=== PATIENT | male | born 1955 | race Hispanic/Latino ===

== ENCOUNTER 2017-12-04 18:52 | Observation (INO) | payer OTHER ==
[2017-12-04] MEDS ORDERED: NA CHLORIDE 0.9% 1,000 ML ONE (19:20)
[2017-12-04 19:26] LABS: Blood Gas Oxyhemoglobin 94.1 % (94-97); Blood O2 Saturation 96.1 % (92-98.5)
[2017-12-04 19:31] LABS: Absolute Monocytes 0.6 K/uL (0.1-1.3); Basophils % 0.7 % (0-1.3); Eosinophils % 0.8 % (0-4.4); Hematocrit 43.1 % (39.6-49.0); Lymphocytes % 13.4 % (15.3-44.8); MCH 32.4 pg (27.0-35.0); MCV 95.4 fL (80-100); MPV 9.7 fL (7.6-11.3); Monocytes % 7.2 % (3.3-12.3); RBC Red Blood Cell Count 4.51 M/uL (4.33-5.43)
[2017-12-04] MEDS ORDERED: METOPROLOL TARTRATE 5 MG/5 ML INJ IV ONE (19:34)
[2017-12-04 19:45] LABS: Protime INR 1.08
--- NOTE | 2017-12-04 19:49 | RAD REPORT ---
EXAM DESCRIPTION: RAD - Chest Single View - 12/04/2017 7:40 pm CLINICAL HISTORY: DYSPNEA Chest pain. COMPARISON: No comparisons FINDINGS: Portable technique limits examination quality. The lungs are grossly clear. The heart is mildly to moderately enlarged in size. No displaced fractur es. IMPRESSION: No acute intrathoracic process suspected.
[2017-12-04 19:55] LABS: Albumin 3.5 g/dL (3.4-5.0); Bilirubin Direct 0.3 mg/dL (0-0.2); Bilirubin Total 1.1 mg/dL (0.2-1.0); Magnesium 2.5 mg/dL (1.8-2.4); Potassium 3.7 mmol/L (3.5-5.1); Protein, Total 7.2 g/dL (6.4-8.2)
[2017-12-04 21:15] LABS: Barbiturates NEGATIVE (NEGATIVE); Benzodiazepines NEGATIVE (NEGATIVE); Cocaine NEGATIVE (NEGATIVE); METHAMPHETAM NEGATIVE (NEGATIVE); Methadone NEGATIVE (NEGATIVE); Opiates NEGATIVE (NEGATIVE); Phencyclidine NEGATIVE (NEGATIVE); THC Cannibis NEGATIVE (NEGATIVE)
--- NOTE | 2017-12-04 21:17 | RAD REPORT ---
EXAM DESCRIPTION: CT - Head Brain Wo Cont - 12/04/2017 9:01 pm CLINICAL HISTORY: SYNCOPE COMPARISON: No comparisons TECHNIQUE: All CT scans are performed using dose optimization technique as appropriate and may inclu de automated exposure control or mA/KV adjustment according to patient size. FINDINGS: No intracranial hemorrhage, hydrocephalus or extra-axial fluid collection.Moderate general ized brain atrophy is present with moderate periventricular and deep white matter chronic microvascul ar ischemic changes.No areas of brain edema or evidence of midline shift. The paranasal sinuses and mastoids are clear. The calvarium is intact. IMPRESSION: No acute intracranial abnormality.
--- NOTE | 2017-12-04 22:02 | RAD REPORT ---
EXAM DESCRIPTION: VAS - Extrem Venous W Compress Alfa - 12/04/2017 9:57 pm CLINICAL HISTORY: dyspnea Bilateral leg edema and swelling. COMPARISON: <Comparisons> TECHNIQUE: Real-time sonographic interrogation of the left and right lower extremity deep venous sys tems was performed. FINDINGS: Normal compressibility, flow augmentation, phasic flow and spontaneous flow is identified in both the left and right lower extremity deep venous systems. IMPRESSION: No sonographic evidence of left or right lower extremity deep venous thrombosis.
[2017-12-04 22:11] LABS: Urine Blood NEGATIVE (NEG); Urine Glucose NEGATIVE (NEG); Urine Protein 2+ (NEG); Urine Specific Gravity 1.025 (1.005-1.030)
--- NOTE | 2017-12-05 00:40 | ER ---
Nurse's Notes [facility] Name: Ephraim Telles Jr Age: 62 yrs Sex: Male : 1955 Arrival Date: 12/04/2017 Time: 18:53 Bed 3 Private MD: Diagnosis: Acute dyspnea. Syncope. Atrial fib. with RVR. Possible Pulmonary embolism Presentation: 12/04 18:53 Presenting complaint: EMS states: Pt had sudden onset of SOB and a syncopal episode, pt ph diaphoretic upon EMS arrival, breath sounds diminished in LL lobe, hx of A-fib, rate in 30s, Spo2 in 80's on RA, improved to 96% on 4L NC, pt denies pain. Transition of care: patient was not received from another setting of care. Onset of symptoms was December 04, 2017. Risk Assessment: Do you want to hurt yourself or someone else? Patient reports no desire to harm self or others. Initial Sepsis Screen: Does the patient meet any 2 criteria? No. Patient's initial sepsis screen is negative. Does the patient have a suspected source of infection? No. Patient's initial sepsis screen is negative. Care prior to arrival: IV initiated. in the right hand. 18:53 Method Of Arrival: EMS: [facility] 18:53 Acuity: LONNIE 2 ph Triage Assessment: 19:58 General: Appears in no apparent distress. comfortable. Respiratory: Reports shortness ao of breath Onset: The symptoms/episode began/occurred today, the patient has moderate shortness of breath. Historical: - Allergies: 19:08 No Known Allergies; ph - Home Meds: 19:08 warfarin 2.5 mg Oral tab 2 tabs once daily [Active]; aspirin 81 mg Oral TbEC 1 tab once ph daily [Active]; atorvastatin 40 mg oral tab 1 tab once daily [Active]; digoxin 125 mcg Oral tab 1 tab once daily [Active]; lisinopril 10 mg Oral tab 1 tab once daily [Active]; metoprolol tartrate 100 mg Oral tab 1 tab 2 times per day [Active]; metoprolol tartrate 25 mg Oral tab 1 tab 2 times per day [Active]; 19:19 ranitidine HCl 150 mg Oral cap 1 cap once daily [Active]; terazosin 10 mg oral cap 1 ph cap once daily [Active]; - PMHx: 19:08 Hypertension; Hyperlipidemia; Atrial Fib; ph - Immunization history:: Adult Immunizations up to date. - Social history:: Smoking status: Patient/guardian denies using tobacco. - Ebola Screening: : No symptoms or risks identified at this time. Screenin:57 Abuse screen: Denies threats or abuse. Denies injuries from another. Nutritional ao screening: No deficits noted. Tuberculosis screening: No symptoms or risk factors identified. Fall Risk None identified. Assessment: 19:11 General: Appears in no apparent distress. comfortable, Behavior is calm, cooperative, ao appropriate for age. Pain: Denies pain. Neuro: Level of Consciousness is awake, alert, obeys commands, Oriented to person, place, time, situation, Appropriate for age Moves all extremities. Speech is normal, Facial symmetry appears normal. Cardiovascular: Reports shortness of breath, Denies chest pain, Heart tones S1 S2 Rhythm is atrial fibrillation. Respiratory: Airway is patent Respiratory effort is even, unlabored, Respiratory pattern is regular, Breath sounds are clear bilaterally. GI: Abdomen is round obese. : No signs and/or symptoms were reported regarding the genitourinary system. EENT: No signs and/or symptoms were reported regarding the EENT system. Derm: Skin is pink, warm \T\ dry. normal, Skin temperature is warm. Musculoskeletal: Range of motion: intact in all extremities. 20:20 Reassessment: Patient appears in no apparent distress at this time. Patient and/or ao family updated on plan of care and expected duration. Pain level reassessed. Patient is alert, oriented x 3, equal unlabored respirations, skin warm/dry/pink. Patient HR is on the 90st and still on Afib. 21:34 Reassessment: Patient appears in no apparent distress at this time. Patient and/or ao family updated on plan of care and expected duration. Pain level reassessed. Patient is alert, oriented x 3, equal unlabored respirations, skin warm/dry/pink. Patient back from CT. 22:40 Reassessment: Patient appears in no apparent distress at this time. Patient and/or ao family updated on plan of care and expected duration. Pain level reassessed. Patient is alert, oriented x 3, equal unlabored respirations, skin warm/dry/pink. Waiting on CT report. 23:52 Reassessment: Patient appears in no apparent distress at this time. Patient and/or ao family updated on plan of care and expected duration. Pain level reassessed. Patient is alert, oriented x 3, equal unlabored respirations, skin warm/dry/pink. Waiting on dispo orders. Patient HR in the 90st to 100st. Patient denies pain at this time. 12/05 00:25 Reassessment: Patient appears in no apparent distress at this time. Patient and/or ao family updated on plan of care and expected duration. Pain level reassessed. Patient is alert, oriented x 3, equal unlabored respirations, skin warm/dry/pink. Calling to get patient transferred to [facility]. 01:38 Reassessment: Patient appears in no apparent distress at this time. Patient and/or ao family updated on plan of care and expected duration. Pain level reassessed. Patient is alert, oriented x 3, equal unlabored respirations, skin warm/dry/pink. No beds available at [facility]. Patient to be admitted to the hospital. 04:00 Reassessment: Waiting for BP to come down before patient can be move. Report called to ao [facility] by RADHA Reddy. 04:58 Reassessment: Patient and/or family updated on plan of care and expected duration. Pain fc level reassessed. spoke with Dr Pratt about pts bp of 161/121. Rec'd orders for Hydralazine and Lovenox for now. Charted in [employer]. Vital Signs: 12/04 18:57 BP 150 / 111; Pulse 148; Resp 20; Temp 97.8; Pulse Ox 95% on R/A; Weight 127.01 kg; ph Height 5 ft. 10 in. (177.80 cm); Pain 0/10; 19:32 BP 161 / 121; Pulse 137; Resp 20; Pulse Ox 96% on R/A; mw2 19:57 BP 147 / 120; Pulse 101; Resp 17; Pulse Ox 97% on R/A; Pain 0/10; ao 20:20 BP 142 / 126; Pulse 93; Resp 20; Pulse Ox 92% on R/A; Pain 0/10; ao 21:34 BP 168 / 120; Pulse 112; Resp 25; Pulse Ox 97% on R/A; ao 22:15 BP 147 / 106; Pulse 117; Resp 24; Pulse Ox 94% on R/A; mw2 23:21 BP 167 / 112; Pulse 106; Resp 18; Pulse Ox 96% on R/A; tl2 12/05 00:30 BP 176 / 116; Pulse 103; Resp 20; Pulse Ox 96% on R/A; ao 01:40 BP 162 / 127; Pulse 108; Resp 16; Pulse Ox 95% on R/A; ao 03:00 BP 183 / 127; Pulse 102; Resp 20; Pulse Ox 95% ; tl2 04:02 BP 174 / 130; Pulse 138; Resp 20; Pulse Ox 94% on R/A; ao 04:18 BP 163 / 128; Pulse 104; Resp 22; Pulse Ox 92% on R/A; ao 04:59 BP 161 / 97; Pulse 105; Resp 18; Pulse Ox 95% on R/A; tl2 05:03 BP 161 / 97; Pulse 94; Resp 16; Pulse Ox 94% on R/A; Pain 0/10; ao 12/04 18:57 Body Mass Index 40.18 (127.01 kg, 177.80 cm) ph ED Course: 12/04 18:53 Patient arrived in ED. ph 18:57 Triage completed. ph 19:05 Sarthak Jackson MD is Attending Physician. pkl 19:11 Luis Bautsita, RADHA is Primary Nurse. ao 19:17 Inserted saline lock: 20 gauge in right antecubital area, using aseptic technique. ag Blood collected. 19:20 Arm band placed on. ph 19:36 X-ray completed. Portable x-ray completed in exam room. jr1 19:40 XRAY Chest (1 view) In Process Unspecified. EDMS 19:58 Patient has correct armband on for positive identification. ao 20:40 Radiology exam delayed due to pt using the bathroom. aa4 20:51 Radiology exam delayed due to pt with CT, bringing to US after. aa4 21:00 CT Head Brain wo Cont In Process Unspecified. EDMS 21:08 Patient taken to ultrasound. via stretcher. vr 21:15 Ultrasound completed. Patient tolerated well. Notified ED Physician priti. aa4 21:57 US Extremity Venous W Compression Alfa In Process Unspecified. EDMS 12/05 00:38 Oscar Pratt MD is Hospitalizing Provider. pkl 05:00 No provider procedures requiring assistance completed. Patient admitted, IV remains in fc place. Administered Medications: 12/04 19:35 Drug: Lopressor 5 mg Route: IVP; Site: right antecubital; ao 19:37 Drug: Lopressor 5 mg Route: IVP; Site: right antecubital; ao 19:39 Drug: NS 0.9% 1000 ml Route: IV; Rate: 100 ml/hr; Site: right antecubital; ao 12/05 05:38 Follow up: IV Status: Infusion continued upon admission ao 12/04 19:39 Drug: Lopressor 5 mg Route: IVP; Site: right antecubital; ao 12/05 05:38 Follow up: Response: No adverse reaction ao 04:00 Drug: Labetalol 20 mg Route: IVP; Infused Over: 2 mins; Site: right wrist; ao 05:38 Follow up: Response: No adverse reaction ao Outcome: 00:39 Decision to Hospitalize by Provider. pkl 05:00 Admitted to Tele accompanied by tech, via stretcher, room 410, with chart, Report fc called to [facility] 05:00 Condition: good 05:00 Discharge instructions given to patient, Guards Instructed on the need for admit, Demonstrated understanding of instructions. 05:23 Patient left the ED. ao Signatures: Dispatcher [employer] EDMS Sarthak Jackson MD MD pkl Ringgold, Jennifer jr1 Maureen Ricci RN RN Kiera Beard Victoria vr Gallardo, Ana ag Hall, Patricia, RN RN ph Ortiz, Alex, RN RN ao Knox, Taylor, RN RN 2 Columba Reeves 2 Corrections: (The following items were deleted from the chart) 12/04 19:01 18:57 Pulse 148bpm; Resp 20bpm; Pulse Ox 95% RA; Temp 97.8F; 127.01 kg; Height 5 ft. 10 ph in.; BMI: 40.1; Pain 0/10; ph 19:59 19:58 General: Appears distressed, uncomfortable, ao ao
--- NOTE | 2017-12-05 00:40 | EDPHYS ---
Physician Documentation [facility] Name: Ephraim Telles Jr Age: 62 yrs Sex: Male : 1955 Arrival Date: 12/04/2017 Time: 18:53 Bed 3 Private MD: ED Physician Sarthak Jackson HPI: 12/04 19:13 This 62 yrs old Male presents to ER via EMS with complaints of Shortness Of Breath, pkl Syncope. 19:13 The patient has shortness of breath at rest. Onset: The symptoms/episode began/occurred pkl just prior to arrival. Associated signs and symptoms: Pertinent positives: diaphoresis, syncope. Historical: - Allergies: 19:08 No Known Allergies; ph - Home Meds: 19:08 warfarin 2.5 mg Oral tab 2 tabs once daily [Active]; aspirin 81 mg Oral TbEC 1 tab once ph daily [Active]; atorvastatin 40 mg oral tab 1 tab once daily [Active]; digoxin 125 mcg Oral tab 1 tab once daily [Active]; lisinopril 10 mg Oral tab 1 tab once daily [Active]; metoprolol tartrate 100 mg Oral tab 1 tab 2 times per day [Active]; metoprolol tartrate 25 mg Oral tab 1 tab 2 times per day [Active]; 19:19 ranitidine HCl 150 mg Oral cap 1 cap once daily [Active]; terazosin 10 mg oral cap 1 ph cap once daily [Active]; - PMHx: 19:08 Hypertension; Hyperlipidemia; Atrial Fib; ph - Immunization history:: Adult Immunizations up to date. - Social history:: Smoking status: Patient/guardian denies using tobacco. - Ebola Screening: : No symptoms or risks identified at this time. ROS: 19:13 Eyes: Negative for injury, pain, redness, and discharge, ENT: Negative for injury, pkl pain, and discharge, Neck: Negative for injury, pain, and swelling, Cardiovascular: Negative for chest pain, palpitations, and edema. 19:13 Respiratory: Positive for shortness of breath. 19:13 Abdomen/GI: Negative for abdominal pain, nausea, vomiting, and diarrhea. 19:13 Back: Negative for acute changes. 19:13 : Negative for urinary symptoms. 19:13 MS/extremity: Negative for acute changes. 19:13 Skin: Positive for diaphoresis. 19:13 Neuro: Positive for syncope. Exam: 19:29 Head/Face: Normocephalic, atraumatic. Eyes: Pupils equal round and reactive to light, pkl extra-ocular motions intact. Lids and lashes normal. Conjunctiva and sclera are non-icteric and not injected. Cornea within normal limits. Periorbital areas with no swelling, redness, or edema. ENT: Nares patent. No nasal discharge, no septal abnormalities noted. Tympanic membranes are normal and external auditory canals are clear. Oropharynx with no redness, swelling, or masses, exudates, or evidence of obstruction, uvula midline. Mucous membranes moist. Neck: Trachea midline, no thyromegaly or masses palpated, and no cervical lymphadenopathy. Supple, full range of motion without nuchal rigidity, or vertebral point tenderness. No Meningismus. Chest/axilla: Normal chest wall appearance and motion. Nontender with no deformity. No lesions are appreciated. 19:29 Chest/axilla: Exam negative for acute changes. 19:29 Cardiovascular: Rate: tachycardic, actual rate is 148 bpm, Rhythm: irregularly irregular. 19:29 ECG was reviewed by the Attending Physician. 19:29 Respiratory: the patient does not display signs of respiratory distress, Respirations: normal, Breath sounds: are clear throughout. 19:29 Abdomen/GI: Bowel sounds: normal, Palpation: abdomen is soft and non-tender, in all quadrants. 19:29 Back: Exam negative for acute changes. 19:29 : Exam negative for acute changes. 19:29 Musculoskeletal/extremity: Exam is negative for acute changes. 19:29 Skin: Exam negative for flushing. 19:29 Neuro: Orientation: is normal, Mentation: is normal, Cranial nerves: grossly normal, Motor: is normal. Vital Signs: 18:57 BP 150 / 111; Pulse 148; Resp 20; Temp 97.8; Pulse Ox 95% on R/A; Weight 127.01 kg; ph Height 5 ft. 10 in. (177.80 cm); Pain 0/10; 19:32 BP 161 / 121; Pulse 137; Resp 20; Pulse Ox 96% on R/A; mw2 19:57 BP 147 / 120; Pulse 101; Resp 17; Pulse Ox 97% on R/A; Pain 0/10; ao 20:20 BP 142 / 126; Pulse 93; Resp 20; Pulse Ox 92% on R/A; Pain 0/10; ao 21:34 BP 168 / 120; Pulse 112; Resp 25; Pulse Ox 97% on R/A; ao 22:15 BP 147 / 106; Pulse 117; Resp 24; Pulse Ox 94% on R/A; mw2 23:21 BP 167 / 112; Pulse 106; Resp 18; Pulse Ox 96% on R/A; tl2 12/05 00:30 BP 176 / 116; Pulse 103; Resp 20; Pulse Ox 96% on R/A; ao 01:40 BP 162 / 127; Pulse 108; Resp 16; Pulse Ox 95% on R/A; ao 03:00 BP 183 / 127; Pulse 102; Resp 20; Pulse Ox 95% ; tl2 04:02 BP 174 / 130; Pulse 138; Resp 20; Pulse Ox 94% on R/A; ao 04:18 BP 163 / 128; Pulse 104; Resp 22; Pulse Ox 92% on R/A; ao 04:59 BP 161 / 97; Pulse 105; Resp 18; Pulse Ox 95% on R/A; tl2 05:03 BP 161 / 97; Pulse 94; Resp 16; Pulse Ox 94% on R/A; Pain 0/10; ao 12/04 18:57 Body Mass Index 40.18 (127.01 kg, 177.80 cm) ph MDM: 12/04 19:06 Patient medically screened. pkl 12/05 00:36 Data reviewed: vital signs, nurses notes, lab test result(s), EKG, radiologic studies, pkl CT scan, plain films. 12/04 19:12 Order name: Basic Metabolic Panel; Complete Time: 20:03 pkl 12/04 19:12 Order name: CBC with Diff; Complete Time: 19:48 pkl 12/04 19:12 Order name: Ckmb; Complete Time: 20:03 pkl 12/04 19:12 Order name: CPK; Complete Time: 20:03 pkl 12/04 19:12 Order name: LFT's; Complete Time: 20:03 pkl 12/04 19:12 Order name: Magnesium; Complete Time: 20:03 pkl 12/04 19:12 Order name: NT PRO-BNP; Complete Time: 20:03 pkl 12/04 19:12 Order name: PT-INR; Complete Time: 20:03 pkl 12/04 19:12 Order name: Ptt, Activated; Complete Time: 20:03 pkl 12/04 19:12 Order name: Troponin (emerg Dept Use Only); Complete Time: 20:03 pkl 12/04 19:12 Order name: ABG; Complete Time: 19:48 pkl 12/04 19:12 Order name: D-Dimer; Complete Time: 20:03 pkl 12/04 19:12 Order name: UDS; Complete Time: 00:40 pkl 12/04 21:01 Order name: Urine Dipstick--Ancillary (enter results); Complete Time: 00:40 ms 12/04 19:12 Order name: XRAY Chest (1 view); Complete Time: 20:03 pkl 12/04 19:12 Order name: EKG; Complete Time: 19:13 pkl 12/04 19:12 Order name: Cardiac monitoring; Complete Time: 19:15 pkl 12/04 19:12 Order name: EKG - Nurse/Tech; Complete Time: 19:30 pkl 12/04 19:12 Order name: IV Saline Lock; Complete Time: 19:15 pkl 12/04 19:12 Order name: Labs collected and sent; Complete Time: 19:18 pkl 12/04 19:12 Order name: O2 Per Protocol; Complete Time: 19:15 pkl 12/04 19:12 Order name: O2 Sat Monitoring; Complete Time: 19:15 pkl 12/04 19:12 Order name: Urine Dipstick-Ancillary (obtain specimen); Complete Time: 20:46 pkl 12/04 20:07 Order name: CT Head Brain wo Cont; Complete Time: 00:40 pkl 12/04 20:07 Order name: US Extremity Venous W Compression Alfa; Complete Time: 00:40 pkl Administered Medications: 12/04 19:35 Drug: Lopressor 5 mg Route: IVP; Site: right antecubital; ao 19:37 Drug: Lopressor 5 mg Route: IVP; Site: right antecubital; ao 19:39 Drug: NS 0.9% 1000 ml Route: IV; Rate: 100 ml/hr; Site: right antecubital; ao 12/05 05:38 Follow up: IV Status: Infusion continued upon admission ao 12/04 19:39 Drug: Lopressor 5 mg Route: IVP; Site: right antecubital; ao 12/05 05:38 Follow up: Response: No adverse reaction ao 04:00 Drug: Labetalol 20 mg Route: IVP; Infused Over: 2 mins; Site: right wrist; ao 05:38 Follow up: Response: No adverse reaction ao Disposition: 12/05/17 00:39 Hospitalization ordered by Oscar Pratt for Observation. Preliminary diagnosis is Acute dyspnea. Syncope. Atrial fib. with RVR. Possible Pulmonary embolism. - Bed requested for Telemetry/MedSurg (observation). - Status is Observation. ao - Condition is Stable. - Problem is new. - Symptoms have improved. UTI on Admission? No Signatures: Dispatcher [employer] EDMS Elisa Lazcano, RN RN Sarthak Gutierrez MD MD pkl Chretien, Felicia RN RADHA Julia Weiss RN RN Luis Bautista, RN RN ao Corrections: (The following items were deleted from the chart) 03:14 00:39 Hospitalization Ordered by Oscar Pratt MD for Observation. Preliminary kl diagnosis is Acute dyspnea. Syncope. Atrial fib. with RVR. Possible Pulmonary embolism. Bed requested for Telemetry/MedSurg (observation). Status is Observation. Condition is Stable. Problem is new. Symptoms have improved. UTI on Admission? No. pkl 05:23 03:14 12/05/2017 00:39 Hospitalization Ordered by Oscar Pratt MD for Observation. ao Preliminary diagnosis is Acute dyspnea. Syncope. Atrial fib. with RVR. Possible Pulmonary embolism. Bed requested for Telemetry/MedSurg (observation). Status is Observation. Condition is Stable. Problem is new. Symptoms have improved. UTI on Admission? No. kl
--- NOTE | 2017-12-05 01:46 | P.HP ---
Certification for Inpatient Patient admitted to: Observation With expected LOS: <2 Midnights Practitioner: I am a practitioner with admitting privileges, knowledge of patient current condition, hospital course, and medical plan of care. Services: Services provided to patient in accordance with Admission requirements found in Title 42 Section 412.3 of the Code of Federal Regulations Patient History Date of Service: 12/05/17 Reason for admission: Syncope History of Present Illness: Mr. Telles is a 62-year-old male, who is an inmate, with history of hypertension, chronic atrial fibrillation, diabetes mellitus types 2, dyslipidemia, obesity, states that when he was walking on the hold started feeling dizziness, no blackout, and then he passed out. He denied palpitation, shortness of breath, diaphoretic episode, or chest pain. 911 was called, and when the EMS arrived, found the patient with heart rate in the 30s, O2 sat 80% on room air. The patient was placed in supplemental oxygen, and his O2 sat came up to 94%. Laboratory work was remarkable for elevated D-dimer, elevated creatinine, elevated proBNP and slightly elevation of initial troponin. EKG shows atrial fibrillation at 140 is BPM. Home medications list reviewed: Yes - Past Medical/Surgical History -: Diabetes mellitus types 2 -: Obesity -: Hypertension -: Dyslipidemia Past Surgical History: Reviewed- Non-Contributory - Family History Family History: Reviewed- Non-Contributory - Social History Smoking Status: Never smoker Alcohol use: No CD- Drugs: No Caffeine use: Yes Place of Residence: Home Review of Systems 10-point ROS is otherwise unremarkable Physical Examination - Physical Exam General: Alert, In no apparent distress HEENT: Atraumatic, PERRLA, Mucous membr. moist/pink, EOMI, Sclerae nonicteric Neck: Supple, 2+ carotid pulse no bruit, No LAD, Without JVD or thyroid abnormality Respiratory: Clear to auscultation bilaterally, Normal air movement Cardiovascular: Normal S1 S2, Irregular heart rate/rhythm Gastrointestinal: Normal bowel sounds, No tenderness Musculoskeletal: No tenderness Integumentary: No rashes Neurological: Normal speech, Normal strength at 5/5 x4 extr, Normal tone, Normal affect Lymphatics: No axilla or inguinal lymphadenopathy - Studies Laboratory Data (last 24 hrs) 12/04/17 19:15: PT 12.7 H, INR 1.08, APTT 27.4 12/04/17 19:15: WBC 7.7, Hgb 14.6, Hct 43.1, Plt Count 174 12/04/17 19:15: Sodium 145, Potassium 3.7, BUN 13, Creatinine 1.60 H, Glucose 127 H, Magnesium 2.5 H, Total Bilirubin 1.1 H, AST 25, ALT 29, Alkaline Phosphatase 105 Assessment and Plan - Problems (Diagnosis) (1) Syncope Current Visit: Yes Status: Acute Qualifiers: Syncope type: unspecified Qualified Code(s): R55 - Syncope and collapse (2) Acute renal injury Current Visit: Yes Status: Acute (3) Obesity Current Visit: Yes Status: Acute Qualifiers: Obesity type: unspecified obesity type Obesity classification: unspecified obesity classification Serious obesity comorbidity presence: unspecified whether serious comorbidity present Qualified Code(s): E66.9 - Obesity, unspecified (4) Hypertension Current Visit: Yes Status: Acute Qualifiers: Hypertension type: essential hypertension Qualified Code(s): I10 - Essential (primary) hypertension (5) Dyslipidemia Current Visit: Yes Status: Acute - Plan 1. Syncope: Etiology is still unclear, CT scan of the head shows no acute intracranial abnormality. Since D-dimer is elevated, PE he is within the differential diagnosis, however his renal function is abnormal, and CTA of the chest is contraindicated at this point. Will order a V/Q scan in the morning, in the meantime will start empiric who will anticoagulation. Patient's INR is subtherapeutic, I believe the patient is taking warfarin for his atrial fibrillation. Doppler venous ultrasound is negative for DVT. 2. Hypertension: Will resume home medication once is verified. 3. Chronic atrial fibrillation: Heart rate was in the 30s when EMS arrived, in ED, his atrial fibrillation was with RVR at about 150 BPM, HR was better controlled after receive IV metoprolol. Will resume home medication once is painful. 4. Acute renal injury: Will order IV normal saline. - Advance Directives Does patient have a Living Will: No Does patient have a Durable POA for Healthcare: No - Code Status/Comfort Care Code Status Assessed: Yes Code Status: Full Code
[2017-12-05] MEDS ORDERED: LABETALOL HCL 100 MG/20 ML ONE (03:59)
[2017-12-05] MEDS ORDERED: HYDRALAZINE HCL 20 MG/ML VIAL ONE (04:49)
[2017-12-05] MEDS ORDERED: ENOXAPARIN 100 MG/ML SYR SQ ONE ×2 (04:50→04:52)
[2017-12-05] MEDS ORDERED: ONDANSETRON 4 MG/2 ML VIAL IV PRN (04:52)
[2017-12-05] MEDS ORDERED: HYDRALAZINE HCL 20 MG/ML VIAL IV ONE (04:52)
[2017-12-05] MEDS: NA CHLORIDE 0.9% 1,000 ML IV SCH ×3 (04:52→14:52)
[2017-12-05] MEDS ORDERED: ACETAMINOPHEN 500 MG TAB PO PRN (04:52)
[2017-12-05 07:13] LABS: Potassium 3.6 mmol/L (3.5-5.1)
--- NOTE | 2017-12-05 07:17 | EKG ---
Test Date: 2017-12-04 Test Time: 19:24:26 Market Research Assistant: KEVAN MEASUREMENT RESULTS: Intervals: Rate: 123 AK: QRSD: 88 QT: 326 QTc: 466 [place]: P: AK: QRS: 21 T: 77 INTERPRETIVE STATEMENTS: Atrial fibrillation with rapid ventricular response Low voltage QRS Cannot rule out Anterior infarct, age undetermined Abnormal ECG No previous ECG available for comparison Electronically Signed On 12-05-17 07:17:18 CDT by Mathew Blood
[2017-12-05] MEDS: INSULIN -REGULAR HUMAN 50 UNIT/0.5 ML ML SQ SCH ×4 (07:30→20:21)
--- NOTE | 2017-12-05 10:41 | ECHO ---
HEIGHT: 5 ft 10 in WEIGHT: 278 lb 0 oz DATE OF STUDY: 12/05/[address]: Oscar Barillas MD 2-DIMENSIONAL: YES M.MODE: YES DOPPLER: YES COLOR FLOW: YES TDS: NO PORTABLE: NO DEFINITY: NO BUBBLE STUDY: NO DIAGNOSIS: SYNCOPE CARDIAC HISTORY: CATHERIZATION: NO SURGERY: NO PROSTHETIC VALVE: NO PACEMAKER: NO MEASUREMENTS (cm) DIASTOLIC (NORMALS) SYSTOLIC (NORMALS) IVSd 1.3 (0.6-1.2) LA Diam (1.9-4.0) LVEF 50-55% LVIDd 4.5 (3.5-5.7) LVIDs 3.6 (2.0-3.5) %FS 21% LVPWd 1.3 (0.6-1.2) Ao Diam 3.4 (2.0-3.7) 2 DIMENSIONAL ASSESSMENT: RIGHT ATRIUM: NORMAL LEFT ATRIUM: DILATED RIGHT VENTRICLE: NORMAL LEFT VENTRICLE: LEFT VENTRICULAR HYPERTROPHY TRICUSPID VALVE: NORMAL MITRAL VALVE: NORMAL PULMONIC VALVE: NORMAL AORTIC VALVE: NORMAL PERICARDIAL EFFUSION: NONE AORTIC ROOT: NORMAL LEFT VENTRICULAR WALL MOTION: NORMAL DOPPLER/COLOR FLOW: MILD MITRAL REGURGITATION. COMMENTS: NORMAL LEFT VENTRICULAR EJECTION FRACTION. DILATED LEFT ATRIUM. LEFT VENTRICULAR HYPERTROPHY. MILD MITRAL REGURGITATION. ATRIAL FIBRILLATION. HEART RATE OF 120-140 BEATS PER MINUTE. TECHNOLOGIST: Hallie HICKS
[2017-12-05] MEDS: LISINOPRIL 10 MG TAB PO SCH (12:07)
[2017-12-05] MEDS: METOPROLOL TAR 50 MG TAB PO SCH (12:08)
[2017-12-05] MEDS ORDERED: WARFARIN SODIUM 2.5 MG TAB PO SCH (17:00)
[2017-12-05] MEDS: ENOXAPARIN 30 MG/0.3 ML SQ SCH (20:11)
[2017-12-05] MEDS: ENOXAPARIN 100 MG/ML SYR SQ SCH (20:12)
[2017-12-05] MEDS ORDERED: ATORVASTATIN 20 MG TAB PO SCH (21:00)
[2017-12-06] MEDS: NA CHLORIDE 0.9% 1,000 ML IV SCH (00:59)
[2017-12-06 06:15] LABS: Absolute Lymphocytes (CBC) 1.7 K/uL (0.7-4.9); Absolute Monocytes 0.5 K/uL (0.1-1.3); Absolute Neutrophil 3.2 K/uL (1.8-8.0); Basophils % 0.9 % (0-1.3); Eosinophils % 3.5 % (0-4.4); Lymphocytes % 29.7 % (15.3-44.8); MCH 32.7 pg (27.0-35.0); MCV 95.4 fL (80-100); Monocytes % 8.1 % (3.3-12.3); RBC Red Blood Cell Count 4.09 M/uL (4.33-5.43)
[2017-12-06 06:32] LABS: Potassium 3.5 mmol/L (3.5-5.1)
[2017-12-06] MEDS: INSULIN -REGULAR HUMAN 50 UNIT/0.5 ML ML SQ SCH ×2 (07:30→11:30)
[2017-12-06] MEDS: LISINOPRIL 10 MG TAB PO SCH ×2 (09:00→10:26)
[2017-12-06] MEDS: ENOXAPARIN 100 MG/ML SYR SQ SCH (09:00)
[2017-12-06] MEDS ORDERED: ENOXAPARIN 100 MG/ML SYR SQ SCH (09:00)
[2017-12-06] MEDS ORDERED: DIGOXIN 0.125 MG TABLET PO SCH (09:00)
[2017-12-06] MEDS ORDERED: ASPIRIN EC 81 MG TAB PO SCH (09:00)
[2017-12-06] MEDS ORDERED: TERAZOSIN HCL 5 MG CAP PO SCH (09:00)
[2017-12-06] MEDS: METOPROLOL TAR 50 MG TAB PO SCH (10:27)
[2017-12-06] MEDS: ENOXAPARIN 30 MG/0.3 ML SQ SCH (10:28)
--- NOTE | 2017-12-06 12:26 | P.SSS ---
Patient History Date of Service: 12/06/17 Reason for admission: Syncope History of Present Illness: Mr. Telles is a 62-year-old male, who is an inmate, with history of hypertension, chronic atrial fibrillation, diabetes mellitus types 2, dyslipidemia, obesity, states that when he was walking on the hold started feeling dizziness, no blackout, and then he passed out. He denied palpitation, shortness of breath, diaphoretic episode, or chest pain. 911 was called, and when the EMS arrived, found the patient with heart rate in the 30s, O2 sat 80% on room air. The patient was placed in supplemental oxygen, and his O2 sat came up to 94%. Laboratory work was remarkable for elevated D-dimer, elevated creatinine, elevated proBNP and slightly elevation of initial troponin. EKG shows atrial fibrillation at 140 is BPM. Allergies No Known Allergies Allergy (Verified 12/05/17 05:31) Home Medications: Aspirin [Aspirin EC 81 MG] 1 tab PO DAILY 12/05/17 Atorvastatin Calcium [Lipitor*] 40 mg PO DAILY 12/05/17 Digoxin [Lanoxin*] 125 mcg PO DAILY 12/05/17 Lisinopril [Prinivil*] 10 mg PO DAILY 12/05/17 Metoprolol Tartrate 100 mg PO DAILY 12/05/17 Ranitidine HCl [Zantac] 150 mg PO DAILY 12/05/17 Terazosin HCl [Hytrin] 10 mg PO DAILY 12/05/17 Warfarin Sodium [Coumadin*] 2.5 mg PO DAILY 12/05/17 - Past Medical/Surgical History Has patient received pneumonia vaccine in the past: Yes Diabetic: No -: Diabetes mellitus types 2 -: Obesity -: Hypertension -: Dyslipidemia - Family History Family History: Reviewed- Non-Contributory - Social History Smoking Status: Never smoker Alcohol use: No CD- Drugs: No Caffeine use: Yes Place of Residence: Home Review of Systems General: As per HPI Physical Examination - Vital Signs Temperature: 96.9 F Blood Pressure: 139/90 Pulse: 120 Respirations: 20 Pulse Ox (%): 96 - Physical Exam General: Alert, In no apparent distress HEENT: Atraumatic, PERRLA, Mucous membr. moist/pink, EOMI, Sclerae nonicteric Neck: Supple, 2+ carotid pulse no bruit, No LAD, Without JVD or thyroid abnormality Respiratory: Clear to auscultation bilaterally, Normal air movement Cardiovascular: Regular rate/rhythm, Normal S1 S2 Gastrointestinal: Normal bowel sounds, No tenderness Musculoskeletal: No tenderness Integumentary: No rashes Neurological: Normal gait, Normal speech, Normal strength at 5/5 x4 extr, Normal tone, Normal affect Lymphatics: No axilla or inguinal lymphadenopathy - Diagnosis (Problem(s)) (1) Syncope Current Visit: Yes Status: Resolved Qualifiers: Syncope type: heat syncope (2) Acute renal injury Current Visit: Yes Status: Resolved (3) Dyslipidemia Current Visit: Yes Status: Chronic (4) Hypertension Current Visit: Yes Status: Chronic Qualifiers: Hypertension type: essential hypertension Qualified Code(s): I10 - Essential (primary) hypertension (5) Obesity Current Visit: Yes Status: Chronic Qualifiers: Obesity type: unspecified obesity type Obesity classification: unspecified obesity classification Serious obesity comorbidity presence: unspecified whether serious comorbidity present Qualified Code(s): E66.9 - Obesity, unspecified - Disposition Disposition: ROUTINE DISCHARGE Condition: GOOD Diet: Regular Activity: Ad helen
== END 2017-12-06 15:02 ==
LOC: ER 18:52 → ERHOLD 12-05 01:48 → 4TH 12-05 05:23
PROVIDERS: ADMIT Internal Medicine; ATTEND Internal Medicine
DX: R55 Syncope and collapse (principal); N17.9 Acute kidney failure, unspecified; I10 Essential (primary) hypertension; E78.5 Hyperlipidemia, unspecified; I48.2 Chronic atrial fibrillation; E11.9 Type 2 diabetes mellitus without complications; E66.9 Obesity, unspecified; Z68.39 Body mass index [BMI] 39.0-39.9, adult; Z79.82 Long term (current) use of aspirin
CPT/HCPCS: 36415; 70450; 71045; 80048; 80061; 80076; 80307; 81003; 82550; 82553; 82805; 82962; 83735; 83880; 84132; 84484; 85025; 85379; 85610; 85730; 93005; 93306; 93970; 97163; 99285; G0378; J0360; J1650; J7030